=== PATIENT | female | born 1970 | race Caucasian/White ===

== ENCOUNTER 2018-03-10 13:17 | Emergency (ER) | payer SELFPAY ==
--- NOTE | 2018-03-10 13:52 | Emergency Department Record ---
History of Present Illness - General Chief Complaint: Abdominal Pain Stated Complaint: CYST IN GROIN Time Seen by Provider: 03/10/18 13:27 Source: Patient Mode of Arrival: Ambulatory Limitations: No limitations - History of Present Illness Initial Comments: Pt with complaint of something coming out of her vagina. Noted this AM. Smooth and round, not bleeding or painful. No fever. No trauma or injury. Sexually active with the same male partner for three year. Never noted in the past. Onset/Timin -: Days(s) Migration to: No migration Severity: Mild Severity scale (1-10): 4 Quality: Cramping Consistency: Intermittent Improves With: Nothing Worsens With: Nothing Associated Symptoms: Denies other symptoms - Related Data LMP Date: 02/08/18 Patient : No Home Medications Medication Instructions Recorded Confirmed Last Taken No Home Med [NO HOME MEDS] 03/10/18 03/10/18 Unknown Allergies Allergy/AdvReac Type Severity Reaction Status Date / Time Penicillins Allergy ANAPHYLAXIS Verified 03/10/18 13:31 aspirin AdvReac upset Verified 03/10/18 13:31 stomach Travel Screening - Travel/Exposure Within Last 30 Days Have you traveled within the last 30 days?: No Review of Systems Constitutional: Denies: Chills, Fever Eyes: Denies: Eye discharge ENT: Denies: Congestion Respiratory: Denies: Cough Cardiovascular: Denies: Arrhythmia, Chest pain Endocrine: Denies: Fatigue Gastrointestinal: Denies: Abdominal pain Genitourinary: Reports: As per HPI, Abnormal menses. Denies: Discharge, Dyspareunia, Dysuria, Hematuria, Incontinence Musculoskeletal: Denies: Arthralgia, Back pain Skin: Denies: Bruising Neurological: Denies: Abnormal gait Psychiatric: Denies: Anxiety Hematological/Lymphatic: Denies: Anemia Past Medical History - SOCIAL HISTORY Smoking Status: Never smoker Alcohol Use: None Drug Use: None - RESPIRATORY Hx Respiratory Disorders: No - CARDIOVASCULAR Hx Cardio Disorders: No - NEURO Hx Neuro Disorders: No - GI Hx GI Disorders: No - Hx Genitourinary Disorders: No - ENDOCRINE Hx Endocrine Disorders: No - MUSCULOSKELETAL Hx Musculoskeletal Disorders: No - PSYCH Hx Psych Problems: No - HEMATOLOGY/ONCOLOGY Hx Hematology/Oncology Disorders: No Family Medical History Any Significant Family History?: No Physical Exam - General General Appearance: Alert, Oriented x3, Cooperative, No acute distress - Head Head exam: Atraumatic - Eye Eye exam: Normal appearance, PERRL - ENT ENT exam: Normal exam, Mucous membranes moist, Normal external ear exam, Normal orophraynx, TM's normal bilaterally - Neck Neck exam: Normal inspection, Full ROM. negative: Tenderness - Respiratory Respiratory exam: Normal lung sounds bilaterally. negative: Respiratory distress - Cardiovascular Cardiovascular Exam: Regular rate, Normal rhythm, Normal heart sounds - GI/Abdominal GI/Abdominal exam: Soft, Normal bowel sounds. negative: Tenderness - Rectal Rectal exam: Deferred - exam: negative: Abnormal external exam, Normal speculum exam (Large soft tissue mass within vagina appears to come thru cervix. No bleeding. ) - Extremities Extremities exam: Normal inspection - Back Back exam: Reports: Normal inspection - Neurological Neurological exam: Alert, Normal gait, Oriented X3 - Psychiatric Psychiatric exam: Anxious - Skin Skin exam: Normal color. negative: Rash Course Vital Signs 03/10/18 13:27 Temperature 98.3 F Pulse Rate 92 H Respiratory 18 Rate Blood Pressure 155/129 Pulse Ox 100 - Reevaluation(s) Reevaluation #1: 03/10/18 16:00 US with evidence of Polyp. Discussed with PT and plan for [facility] office visit tomorrow scheduled for 11:45AM. Disposition Disposition: Discharge Clinical Impression: Uterine polyp Disposition: Home, Self-Care Condition: (1) Good Additional Instructions: Home with rest. NO tampon. intercourse, douche. See Dr. Harrell at 11:45AM tomorrow at [facility] office. Referrals: AMBREEN HARRELL D.O. [DOCTOR OF OSTEOPATH] - Forms: Patient Portal Access Quality - Quality Measures Quality Measures: N/A - Blood Pressure Screening Does Patient Have Any of the Following: No Blood Pressure Classification: Hypertensive Reading Systolic Measurement: 155 Diastolic Measurement: 129 Screening for High Blood Pressure: < Pre-Hypertensive BP, F/U Documented > [ [id number]] Pre-Hypertensive Follow-up Interventions: Follow-up with rescreen every year.
--- NOTE | 2018-03-11 10:38 | ULTRASOUND REPORT ---
EXAM: PELVIS ULTRASOUND HISTORY: NODULE/MASS VISIBLE FROM VAGINAL ORIFICE. TECHNIQUE: Pelvic ultrasound without transvaginal assessment was obtained. Comparison: None. FINDINGS: The uterus measures 12.3 x 6.5 x 4.9 cm. The endometrium measures approximately 1.6 cm in thickness. Poorly seen cystic areas near the anterior lower uterine segment measuring up to 2.1 cm, possibly large nabothian cysts. On translabial evaluation there is a solid appearing echogenic mass with internal vascularity within the vagina near the cervix measuring approximately 3.3 x 4.1 x 2.9 cm. The right ovary measures 5.7 x 4.1 x 2.0 cm. The left ovary measures 4.2 x 3.6 x 1.8 cm. Bilateral intraovarian arterial and venous waveforms are detected. IMPRESSION: 1. SOLID ECHOGENIC MASS WITHIN THE VAGINA NEAR THE CERVIX WITH INTERNAL VASCULARITY. DIFFERENTIAL CONSIDERATIONS INCLUDE PROLAPSED INTRACAVITARY UTERINE FIBROID, A PROLAPSED CERVICAL POLYP, WITH OTHER NEOPLASTIC ETIOLOGIES NOT EXCLUDED. GYNECOLOGIC CONSULTATION IS RECOMMENDED. 2. INDETERMINATE CYSTIC STRUCTURES NEAR THE LOWER UTERINE SEGMENT ANTERIORLY POSSIBLY NABOTHIAN CYSTS, BUT NOT WELL SEEN. JOB NUMBER: [id number] [facility]
== END 2018-03-10 16:24 | disposition home or self-care (01) ==
LOC: ER 13:17
DX: N84.0 Polyp of corpus uteri (principal)
CPT/HCPCS: 76856; 99283